=== PATIENT | female | born 1960 | race Caucasian/White ===

== ENCOUNTER → 2023-03-28 06:51 | Outpatient (REF) | payer BC, SELFPAY | LOC: WDC 06:51 | PROVIDERS: ATTENDING PHYSICIAN Obstetrics & Gynecology | DX: Z12.31 Encounter for screening mammogram for malignant neoplasm of breast (principal) | CPT/HCPCS: 77063; 77067 ==

== ENCOUNTER → 2024-04-01 06:51 | Outpatient (REF) | payer BC, SELFPAY | LOC: WDC 06:51 | PROVIDERS: ATTENDING PHYSICIAN Obstetrics & Gynecology; FAMILY PHYSICIAN Family Medicine | DX: Z12.31 Encounter for screening mammogram for malignant neoplasm of breast (principal) | CPT/HCPCS: 77063; 77067 ==

== ENCOUNTER → 2025-01-22 08:01 | Outpatient (REF) | payer BC, SELFPAY | LOC: RAD 08:01 | PROVIDERS: ATTENDING PHYSICIAN Family Medicine | DX: Z13.820 Encounter for screening for osteoporosis (principal) | CPT/HCPCS: 77080 ==